=== PATIENT | male | born 1950 | race Two or more races ===

== ENCOUNTER 2018-09-27 07:16 | Outpatient (CLI) | payer OTHER | END 2018-09-27 07:27 | disposition home or self-care (01) | LOC: NUCLEAR 07:16 | DX: R07.89 Other chest pain (principal); I20.9 Angina pectoris, unspecified | CPT/HCPCS: 78452; 93017; A9500 ==

== ENCOUNTER 2020-09-07 13:44 | Emergency (ER) | payer OTHER ==
[~2020-09-07] VITALS: Ht 160 cm; Wt 75.7 kg
[2020-09-07] MEDS ORDERED: MICARDIS80 MG PO (13:56)
[2020-09-07] MEDS ORDERED: ATORVASTATIN CA20 MG (13:56)
[2020-09-07] MEDS ORDERED: ADALAT CC30 MG PO (13:57)
== END 2020-09-07 21:46 | disposition home or self-care (01) ==
LOC: ER 13:44
DX: N20.0 Calculus of kidney (principal); R10.11 Right upper quadrant pain

== ENCOUNTER → 2021-11-24 07:53 | Outpatient (CLI) | payer OTHER ==
[~2021-11-24 07:53] MED LIST: ADALAT CC30 MG PO; ATORVASTATIN CA20 MG; MICARDIS80 MG PO
== END | disposition home or self-care (01) ==
LOC: LAB 07:53
PROVIDERS: ATTEND Internal Medicine Gastroenterology
DX: K85.90 Acute pancreatitis without necrosis or infection, unspecified (principal); R93.2 Abnormal findings on diagnostic imaging of liver and biliary tract

== ENCOUNTER → 2021-12-14 | Outpatient (CLI) | payer OTHER | END | disposition home or self-care (01) | LOC: TOM 08:03 | PROVIDERS: ATTEND Internal Medicine Gastroenterology | DX: M35.6 Relapsing panniculitis [Weber-Christian] (principal); R74.8 Abnormal levels of other serum enzymes; K85.90 Acute pancreatitis without necrosis or infection, unspecified | CPT/HCPCS: 74177; Q9965 ==

== ENCOUNTER 2022-02-02 07:58 | Outpatient (CLI) | payer OTHER | END 2022-02-02 07:59 | disposition home or self-care (01) | LOC: MRI 07:58 | PROVIDERS: ATTEND Internal Medicine Gastroenterology | DX: R10.9 Unspecified abdominal pain (principal); R79.89 Other specified abnormal findings of blood chemistry; R74.8 Abnormal levels of other serum enzymes; M35.1 Other overlap syndromes; K86.1 Other chronic pancreatitis | CPT/HCPCS: 74181 ==

== ENCOUNTER 2022-05-23 07:21 | Outpatient (CLI) | payer OTHER | END 2022-05-23 07:22 | disposition home or self-care (01) | LOC: NUCLEAR 07:21 | PROVIDERS: ATTEND Internal Medicine | DX: I25.10 Atherosclerotic heart disease of native coronary artery without angina pectoris (principal) ==

== ENCOUNTER 2022-05-23 07:37 | Outpatient (CLI) | payer OTHER | END 2022-05-23 07:39 | disposition home or self-care (01) | LOC: LAB 07:37 | PROVIDERS: ATTEND Internal Medicine | DX: U07.1 COVID-19 (principal); B34.1 Enterovirus infection, unspecified ==

== ENCOUNTER 2023-12-27 06:57 | Outpatient (CLI) | payer OTHER | END 2023-12-27 07:15 | disposition home or self-care (01) | LOC: MRI 06:57 | PROVIDERS: ATTEND Internal Medicine Gastroenterology | DX: R10.84 Generalized abdominal pain (principal); R74.8 Abnormal levels of other serum enzymes | CPT/HCPCS: 74181 ==

== ENCOUNTER 2025-03-30 07:08 | Outpatient (CLI) | payer OTHER | END 2025-03-30 07:10 | disposition home or self-care (01) | LOC: SONOGRAMA 07:08 | PROVIDERS: ATTEND Internal Medicine Gastroenterology | DX: R93.2 Abnormal findings on diagnostic imaging of liver and biliary tract (principal); K76.0 Fatty (change of) liver, not elsewhere classified ==